=== PATIENT | female | born 1995 | race Caucasian/White ===

== ENCOUNTER 2019-08-02 15:30 | Inpatient (IN) | payer BC, OTHER ==
[2019-08-02] MEDS ORDERED: hydrALAZINE 20 MG/ML VIAL SLOW IVP PRN (15:36)
[2019-08-02 15:54] LABS: Amnisure Test RUPTURE DETECTED (No Rupture)
[2019-08-02 15:55] LABS: Amnisure Internal Control QC ACCEPTABLE (ACCEPTABLE)
[2019-08-02 15:58] VITALS: BMI 37.5
[2019-08-02] MEDS: Lactated Ringer's 1,000 ML IV SCH (16:50)
[2019-08-02] MEDS ORDERED: Lidocaine 1% (PF) 30 ML VIAL SC PRN (17:00)
[2019-08-02] MEDS ORDERED: Ondansetron PF 4 MG/2 ML Vial IVP PRN (17:00)
[2019-08-02] MEDS ORDERED: Acetaminophen 500 MG TAB PO PRN (17:00)
[2019-08-02] MEDS ORDERED: Ibuprofen 800 MG TAB PO PRN (17:00)
[2019-08-02] MEDS ORDERED: Butorphanol Tartrate 1 MG/ML VIAL SLOW IVP PRN (17:00)
[2019-08-02] MEDS ORDERED: Carboprost 250 MCG/ML AMP IM PRN (17:00)
[2019-08-02] MEDS ORDERED: Penicillin G Potassium 5 MILL.UNITS in Sodium Chloride 0.9% 100 ML IVPB SCH (17:00)
[2019-08-02] MEDS ORDERED: Methylergonovine 0.2 MG/ML VIAL IM PRN (17:00)
[2019-08-02] MEDS ORDERED: Misoprostol 200 MCG TAB PR PRN (17:00)
[2019-08-02] MEDS ORDERED: Promethazine HCl 25 MG/ML VIAL IM PRN (17:00)
[2019-08-02] MEDS ORDERED: NS / Oxytocin 40 units/1000ml 1,000 ML IV PRN (17:00)
[2019-08-02] MEDS: Penicillin G 2.5 MILL.units 2.5 MILL.UNITS in Premix Bag 1 BAG IVPB SCH ×2 (17:00→22:00)
[2019-08-02 17:06] LABS: #Basophils 0.1 thou/uL (0.0-0.2); #Eosinphils 0.1 thou/uL (0.0-0.7); #Lymphocytes 1.9 thou/uL (1.20-3.40); #Monocytes 0.9 thou/uL (0.11-0.59); #Neutrophils 11.6 thou/uL (1.40-6.50); %Basophils 0.4 % (0.0-1.0); %Eosinophils 0.5 % (0.0-10.0); %Lymphocytes 13.2 % (21.0-51.0); %Neutrophils 79.9 % (42.0-75.0); Hemoglobin 14.6 g/dL (12.0-16.0); Mean Corpuscular HGB CONC 33.7 g/dL (32.0-36.0); Mean Corpuscular Volume 85.8 fL (78.0-98.0); Mean Platelet Volume 11.5 fL (7.4-10.4); Platelet Count 136 thou/uL (130-400); RBC Distribution Width 13.1 % (11.5-14.5); Red Blood Cell (RBC) Count 5.04 mill/uL (4.20-5.40); White Blood Cell (WBC) Count 14.6 thou/uL (4.8-10.8)
[2019-08-02 17:46] LABS: ALT (SGPT) Less than 7 U/L (8-55); AST (SGOT) 18 U/L (5-34); Albumin 3.5 g/dL (3.5-5.0); Alkaline Phosphatase 148 U/L (40-110); Anion Gap 16 mmol/L (10-20); BUN (Urea Nitrogen) 6 mg/dL (7.0-18.7); Bilirubin, Total 0.3 mg/dL (0.2-1.2); Calc. Creatinine Clearance 271 mL/min (70-130); Calcium 9.2 mg/dL (7.8-10.44); Carbon Dioxide 14 mmol/L (22-29); Chloride 107 mmol/L (98-107); Estimated GFR-MDRD Greater than 90; Globulin 3.5 g/dL (2.4-3.5); Glucose 70 mg/dL (70-105); Potassium 4.1 mmol/L (3.5-5.1); Sodium 133 mmol/L (136-145)
[2019-08-02 17:53] LABS: HBSAg Index 0.16 S/CO (0-0.99); Hep B Surf Ag Non-Reactive S/CO (NonReactive); Syphilis Antibody Nonreactive (Nonreactive); Syphilis Antibody Index 0.03 S/CO (<1.00 Non-Reactive)
[2019-08-02 18:03] LABS: Bacteria/HPF None Seen HPF (None Seen); Bilirubin Negative (Negative); Blood, Urine Negative (Negative); Clarity Clear (Clear); Glucose, Urine (Dipstick) Normal (Negative); Leukocyte Negative Leu/uL (Negative); Nitrite Negative (Negative); Protein, Urine (Dipstick) Negative (Neg-Trace); RBC/HPF 0-3 HPF (0-3); Squamous Epithelial 0-3 HPF (0-3); Urobilinogen Normal mg/dL (Less than 2); WBC/HPF 0-3 HPF (0-3)
[2019-08-02] MEDS: Misoprostol 100 MCG TAB VAG SCH ×2 (18:10→22:05)
[2019-08-02 18:19] LABS: Creatinine, Urine 55.64 mg/dL (47-110); Protein, Urine Random Quant Less than 10 mg/dL (1-14)
--- NOTE | 2019-08-02 18:40 | PDOC.FPROB ---
FMR OB H&P: HPI - History of Present Illness Chief Complaint: LOF Indentification: 24 yo @ 35.6 weeks History of Present Illness: 24 yo F comes in w/ complaint of LOF. States woke up at 5am and bed was soaked. Reports continued to have leaking throughout the day so came in. Denies any ctx. vaginal bleeding. Denies any vaginal discharge, itching or irritation. Denies any fever or chills. Denies any urinary sx's. Primary Care Physician: Guy FMR OB H&P: Current - Care : 1 Para: 0 Gestational age: 35.6 weeks - OB Labs Blood type: unknown RH: unknown Antibody Screen: unknown HIV: unknown RPR: unknown HepBsAg: unknown Quad screen: unknown Gonorrhea: unknown Chlamydia: unknown GBS: unknown Additional labs: Do not have access to records at this time. FMR OB H&P: History - Past Medical History PMH: Scoliosis - OB History OB History: No complications known this - BICYCLE FITTER History BICYCLE FITTER History: Denies any hx of abnormal pap smears or hx of STD's - Surgical History Sx History: States had Rods placed in spine for scoliosis back when she was in the 7th grade - Social History Social History: Denies any smoking, drinking or illicit drug use - Family History Family History: Noncontributory FMR OB H&P: Medications - Current Home Medications: Medication Instructions Recorded Confirmed Type Mv-Mn/Iron/FA/Herbal/Digestive 1 tab PO DAILY 08/02/19 08/02/19 History [ One Tablet] Allergies/Adverse Reactions: Allergies Allergy/AdvReac Type Severity Reaction Status Date / Time No Known Allergies Allergy Verified 08/02/19 15:50 FMR OB H&P: ROS - Review of Systems General: denies: fever/chills, weight/appetite/sleep changes Eyes: denies: eye pain, vision changes, double vision ENT: denies: nasal congestion Respiratory: denies: cough, congestion, shortness of breath Gastrointestinal: denies: abdominal pain, indigestion, bloating, cramping, nausea, vomiting, diarrhea, constipation Genitourinary (Female): reports: other (Reports LOF). denies: incontinence, dysuria, hematuria, polyuria, hesitancy, vaginal discharge, vaginal pain, vaginal bleeding, vaginal mass/sore, contractions, vaginal pressure Musculoskeletal: denies: pain, redness, swelling Neurologic: denies: numbness, weakness Integumentary: denies: itching, rash, lesions Hematologic/Lymphatic: denies: prolonged or excessive bleeding Psychological: denies: depression, anxiety FMR OB H&P: Vital Signs - Maternal Vital signs: Vital Signs - First Documented Temp Pulse Resp BP Pulse Ox 98.1 F 95 18 142/92 H 98 08/02/19 15:32 08/02/19 15:32 08/02/19 15:32 08/02/19 15:32 08/02/19 15:32 - Heart Tones Variability: moderate Acceleration: present Deceleration: absent Category: category 1 [place] contractions every: No contractions noted FMR OB H&P: Physical Exam - Physical Exam General: NAD, awake, alert and oriented HEENT: normocephalic and atraumatic, MMM, grossly normal vision, grossly normal hearing Neck: supple, FROM, trachea midline Heart: RRR, normal S1/S2, no murmurs/rubs/gallops, pulses present General: CTAB, no respiratory distress, good air movement, no rales/rhonchi, no wheezing, no retractions Abdomen: soft, gravid, non-tender, bowel sound present, no masses, no hernias Musculoskeletal: normal gait and station, pulses present, FROM in all four extremities, no misalignment/asymmetry, no atrophy Neurological: sensation to pain,touch and proprioception grossly normal Skin: no rash, good tugor, capillary refill <2 seconds Psychiatric: intact recent and remote memory - Pelvic Exam Cervix: no masses, no lesions Deviation from normal: Some blood noted in posterior cul de sac. SVE: 1/Th/High Membranes: Some slight pooling noted, Fluid noted from cervical os, Fluid noted with Presentation: Confirmed with sono, vertex FMR OB H&P: Results - Labs Lab results: Laboratory Results - last 24 hr 08/02/19 08/02/19 08/02/19 15:42 16:51 16:51 WBC 14.6 H RBC 5.04 Hgb 14.6 Hct 43.3 MCV 85.8 MCH 29.0 MCHC 33.7 RDW 13.1 Plt Count 136 MPV 11.5 H Neutrophils % 79.9 H Lymphocytes % 13.2 L Monocytes % 6.0 Eosinophils % 0.5 Basophils % 0.4 Neutrophils # 11.6 H Lymphocytes # 1.9 Monocytes # 0.9 H Eosinophils # 0.1 Basophils # 0.1 Sodium 133 L Potassium 4.1 Chloride 107 Carbon Dioxide 14 L Anion Gap 16 BUN 6 L Creatinine 0.51 L Estimated GFR (MDRD) Greater than 90 Glucose 70 Calcium 9.2 Total Bilirubin 0.3 AST 18 ALT Less than 7 L Alkaline Phosphatase 148 H Serum Total Protein 7.0 Albumin 3.5 Globulin 3.5 Albumin/Globulin Ratio 1.0 L Urine Color Urine Clarity Urine pH Ur Specific [place] Urine Protein Urine Glucose (UA) Urine Ketones Urine Blood Urine Nitrite Urine Bilirubin Urine Urobilinogen Ur Leukocyte Esterase Urine RBC Urine WBC Ur Squamous Epith Cells Urine Bacteria Hyaline Casts U Random Total Protein Urine Creatinine Amnio Swab Test RUPTURE DETECTED H Syphilis IgG/IgM Ab Hep Bs Antigen Blood Type Antibody Screen 08/02/19 08/02/19 08/02/19 16:51 16:51 16:51 WBC RBC Hgb Hct MCV MCH MCHC RDW Plt Count MPV Neutrophils % Lymphocytes % Monocytes % Eosinophils % Basophils % Neutrophils # Lymphocytes # Monocytes # Eosinophils # Basophils # Sodium Potassium Chloride Carbon Dioxide Anion Gap BUN Creatinine Estimated GFR (MDRD) Glucose Calcium Total Bilirubin AST ALT Alkaline Phosphatase Serum Total Protein Albumin Globulin Albumin/Globulin Ratio Urine Color Urine Clarity Urine pH Ur Specific [place] Urine Protein Urine Glucose (UA) Urine Ketones Urine Blood Urine Nitrite Urine Bilirubin Urine Urobilinogen Ur Leukocyte Esterase Urine RBC Urine WBC Ur Squamous Epith Cells Urine Bacteria Hyaline Casts U Random Total Protein Urine Creatinine Amnio Swab Test Syphilis IgG/IgM Ab Nonreactive Hep Bs Antigen Non-Reactive Blood Type A POSITIVE Antibody Screen NEGATIVE 08/02/19 08/02/19 17:39 17:39 WBC RBC Hgb Hct MCV MCH MCHC RDW Plt Count MPV Neutrophils % Lymphocytes % Monocytes % Eosinophils % Basophils % Neutrophils # Lymphocytes # Monocytes # Eosinophils # Basophils # Sodium Potassium Chloride Carbon Dioxide Anion Gap BUN Creatinine Estimated GFR (MDRD) Glucose Calcium Total Bilirubin AST ALT Alkaline Phosphatase Serum Total Protein Albumin Globulin Albumin/Globulin Ratio Urine Color Light-Yellow Urine Clarity Clear Urine pH 6.0 Ur Specific [place] 1.013 Urine Protein Negative Urine Glucose (UA) Normal Urine Ketones Trace A Urine Blood Negative Urine Nitrite Negative Urine Bilirubin Negative Urine Urobilinogen Normal Ur Leukocyte Esterase Negative Urine RBC 0-3 Urine WBC 0-3 Ur Squamous Epith Cells 0-3 Urine Bacteria None Seen Hyaline Casts 0-3 U Random Total Protein Less than 10 Urine Creatinine 55.64 Amnio Swab Test Syphilis IgG/IgM Ab Hep Bs Antigen Blood Type Antibody Screen FMR OB H&P: A/P - Problem List (1) Current Visit: Yes Status: Acute (2) premature rupture of membranes (PPROM) delivered, current hospitalization Current Visit: Yes Status: Acute Code(s): O42.919 - PRETRM LEEANNE ROM, UNSP TIME BETW RUPT AND ONST LABR, UNSP TRI (3) Elevated blood pressure affecting in third trimester, antepartum Current Visit: Yes Status: Acute Code(s): O16.3 - UNSPECIFIED MATERNAL HYPERTENSION, THIRD TRIMESTER Disposition: 24 yo @ 35.6 wks present w/ PPROM PPROM -Amnisure (+), Fluid noted from cervical os and noted again with valsalva manuever. -Bedside sono showed Vertex position. -SVE /high -Will augment labor with vaginal cytotec at this time and start pitocin when more favorable. -GBS, G/CT cx obtained. -VP3 obtained. -UA obtained. gestational HTN -Pt has had multiple elevated BP in 140's-150s. No severe range pressures noted -CBC, CMP, urine pr/cr ordered -Hydralazine prn for severe range pressures. Discussion: Date/Time: 08/02/191834 This H&P was discussed with [] and [] who agree with the above documentation and plan. Addendum - Attending - Attending Attestation Date/Time: 08/02/192029 I personally evaluated the patient and discussed the management with Dr. Yu. 24 yo at 35 6/7 weeks with ROM and unfavorable cervix. Will admit for Cytotec induction and start Diana for GBS ppx. I agree with the History, Examination, Assessment and Plan documented above.
[2019-08-03] MEDS: Penicillin G 2.5 MILL.units 2.5 MILL.UNITS in Premix Bag 1 BAG IVPB SCH ×5 (02:03→21:15)
[2019-08-03] MEDS ORDERED: Lidocaine 1% (PF) 30 ML VIAL SC PRN (02:49)
--- NOTE | 2019-08-03 04:41 | PDOC.LDPN ---
Labor & Delivery Progress Note - Subjective Subjective: comfortable - Objective Vital signs reviewed and normal: yes General: NAD, resting Uterine fundus: non tender Dilation: 2 Effacement: 50% Station: -1 FHT: category 1, variability present [place] contractions every: 2 minutes - Assessment (1) Current Visit: Yes Status: Acute Qualifiers: Weeks of gestation: 35 weeks Qualified Code(s): Z3A.35 - 35 weeks gestation of (2) premature rupture of membranes (PPROM) delivered, current hospitalization Code(s): O42.919 - PRETRM LEEANNE ROM, UNSP TIME BETW RUPT AND ONST LABR, UNSP TRI Current Visit: Yes Status: Acute (3) Elevated blood pressure affecting in third trimester, antepartum Code(s): O16.3 - UNSPECIFIED MATERNAL HYPERTENSION, THIRD TRIMESTER Current Visit: Yes Status: Acute Plan: continue plan of care, labor augmentation -: 24 yo @ 35.6 wks present w/ PPROM PPROM -Amnisure (+), Fluid noted from cervical os and noted again with valsalva manuever. -Bedside sono showed Vertex position. -SVE 1/Th/high upon presentation. Given 2 doses of vaginal Cytotec. -Most recent SVE 2/50/-1 with consistent ctx every 2 minutes. Cat 1 strip. -Will continue to augment labor with cytotec if pt remains unchanged and ctx space out. Will start pitocin when more favorable -GBS, G/CT cx obtained. -VP3 negative -UA negative gestational HTN -Pt has had multiple elevated BP in 140's-150s. No severe range pressures noted -No abnormalities noted on lab -Hydralazine prn for severe range pressures.
[2019-08-03] MEDS: Misoprostol 100 MCG TAB PO SCH ×2 (05:35→19:46)
[2019-08-03] MEDS: Lactated Ringer's 1,000 ML IV SCH ×2 (05:44→19:47)
[2019-08-03] MEDS ORDERED: NS w/ Oxytocin 10 units 500 ML ONE (08:23)
--- NOTE | 2019-08-03 08:28 | PDOC.LDPN ---
Labor & Delivery Progress Note - Objective Vital signs reviewed and normal: yes General: NAD Uterine fundus: non tender SVE: By Dr Megan Woodson, while I was in room Dilation: 3 Effacement: 50% Station: -2 FHT: category 1 [place] contractions every: irregaular, occasionally every 2-4 minutes - Assessment (1) labor in third trimester Code(s): O60.03 - LABOR WITHOUT DELIVERY, THIRD TRIMESTER Current Visit: Yes Status: Acute (2) Current Visit: Yes Status: Acute Qualifiers: Weeks of gestation: 36 weeks Qualified Code(s): Z3A.36 - 36 weeks gestation of Plan: continue plan of care, labor augmentation (Taylor score is now 6. OK for pitocin. Pitocin over cytotec discuissed with the patient by me. KULWANT Russo in room for exam. Patient on GBS ABX coverage due to EGA. HX SROM yesterday at approx 0500...now Prolonged Prelabor ROM)
[2019-08-03] MEDS ORDERED: NS w/ Oxytocin 10 units 500 ML IV SCH (08:30)
[2019-08-03] MEDS ORDERED: Fentanyl 4 mcg/Bup 0.1% Cadd 100 ML ONE (15:00)
[2019-08-03] MEDS ORDERED: EPHEDRINE 25 MG/5 ML SYRINGE SLOW IVP PRN (15:24)
[2019-08-03] MEDS ORDERED: Ondansetron PF 4 MG/2 ML Vial IVP PRN (15:24)
[2019-08-03] MEDS ORDERED: Lactated Ringer's 500 ML IV PRN (15:24)
[2019-08-03] MEDS ORDERED: Acetaminophen 325 MG TAB PO PRN ×2 (15:24→22:51)
[2019-08-03] MEDS ORDERED: Promethazine HCl 25 MG/ML VIAL IM PRN (15:24)
[2019-08-03] MEDS ORDERED: Naloxone HCl 0.4 mg/ml Vial IVP PRN ×2 (15:24)
[2019-08-03] MEDS ORDERED: diphenhydrAMINE 50 MG/ML VIAL IVP PRN (15:24)
[2019-08-03] MEDS ORDERED: Fentanyl 4 mcg/Bupivacaine 0.1% Cassette 100 ML EPIDURAL SCH (15:30)
[2019-08-03] MEDS ORDERED: Communication Order-Pharmacy FS SCH (15:30)
--- NOTE | 2019-08-03 19:34 | PDOC.LDPN ---
"Labor & Delivery Progress Note - Subjective Subjective: comfortable - Objective Vital signs reviewed and normal: yes General: NAD, resting Uterine fundus: non tender SVE: 1900 Dilation: 6 Effacement: 90% Station: 1+ FHT: category 1, variability present [place] contractions every: 2-3 min - Assessment (1) premature rupture of membranes Code(s): O42.919 - PRETRM LEEANNE ROM, UNSP TIME BETW RUPT AND ONST LABR, UNSP TRI Current Visit: Yes Status: Acute (2) Elevated blood pressure affecting in third trimester, antepartum Code(s): O16.3 - UNSPECIFIED MATERNAL HYPERTENSION, THIRD TRIMESTER Current Visit: Yes Status: Acute (3) labor in third trimester Code(s): O60.03 - LABOR WITHOUT DELIVERY, THIRD TRIMESTER Current Visit: Yes Status: Acute Plan: continue plan of care, pitocin for augmentation -: 24 yo @ 36.0wks present w/ PPROM PPROM -Amnisure (+), Fluid noted from cervical os and noted again with valsalva manuever. -Bedside sono showed Vertex position. -GBS unknown - s/p treatment due to gestation age. -VP3& UA negative. GC/CT pending. SVE: 1643: 4/90/-1 | started pitocin 1900: 6/90/+1 gestational HTN -Pt has had multiple elevated BP in 140's-150s on initial presentation. No severe range pressures noted. Latest pressures have been low/normal. -No abnormalities noted on lab -Hydralazine prn for severe range pressures."
[2019-08-03 19:37] LABS: Chlamydia by PCR Not Detected (NotDetected); GC by PCR Not Detected (NotDetected)
--- NOTE | 2019-08-03 20:00 | PDOC.BPN ---
- Brief Progress Note After last cervical check, baby experienced 3 recurrent late decelerations. Nurse initiated position change and FHT tracing improved. Variability: Moderate Accel appreciated. Will monitor strip closely. Gianluca LONG PGY1 / Dr. Gabriel / Dr. Horn
--- NOTE | 2019-08-03 20:15 | PDOC.EVN ---
Event Note - Event Note Event Note: See L&D QS annotation. I was at bedside with Buse. Decel noted but variability intact. Accels noted. Rate now 140s. CX now 8cm. Plan reviewed with KULWANT Osman.
--- NOTE | 2019-08-03 22:00 | PDOC.BPN ---
- Brief Progress Note Currently category 2 strip intermittent late deceleration, <50% of contractions Moderate variability accels present complete, +3 station Will prepare for delivery
[2019-08-03] MEDS: NS / Oxytocin 40 units/1000ml 1,000 ML IV PRN ×2 (22:39→23:55)
--- NOTE | 2019-08-03 22:44 | PDOC.OPDEL ---
OB Operative/Delivery Note Delivery Dr/Surgeon: Jonelle Assist: Kory Pre-Delivery Diagnosis: active labor, other (36 weeks PPROM) Procedure/Post Delivery Dx: spontaneous vaginal delivery (at 2234, vigorous male ) Weeks gestation: 36 Anesthesia: epidural - Findings A Sex: male - 1 min: 8 (verbal, pending formal score) - 5 min: 9 - Additional Findings/Plan Placenta delivered: spontaneous (celena, at 2239. 3VC.) Repaired Obstetrical Laceration: none Estimated blood loss: 200 at max Compilations/Other Findings: no NC, no lacs, counts correct. NICU RNs present for baby due to EGA. Baby with spont cry and vigorous. Post delivery plan: recovery in LICU
[2019-08-04] MEDS ORDERED: Preparation H Ointment 28 GM TUBE PR PRN (01:13)
[2019-08-04] MEDS ORDERED: NS / Oxytocin 40 units/1000ml 1,000 ML IV SCH (01:13)
[2019-08-04] MEDS ORDERED: Benzocaine-Menthol 82.5 ML CAN TOP PRN (01:13)
[2019-08-04] MEDS ORDERED: Milk Of Magnesia 30 ML UDCUP PO PRN (01:13)
[2019-08-04] MEDS ORDERED: Bisacodyl 10 MG SUPP PR PRN (01:13)
[2019-08-04] MEDS ORDERED: Ondansetron PF 4 MG/2 ML Vial IVP PRN (01:13)
[2019-08-04] MEDS ORDERED: Lanolin Ointment 7 GM TUBE TOP PRN (01:13)
[2019-08-04] MEDS ORDERED: hydrALAZINE 20 MG/ML VIAL SLOW IVP PRN (01:13)
[2019-08-04] MEDS: Lactated Ringer's 1,000 ML IV SCH (01:41)
[2019-08-04] MEDS: Misoprostol 100 MCG TAB VAG SCH ×2 (01:42→01:43)
[2019-08-04] MEDS: Misoprostol 100 MCG TAB PO SCH ×2 (01:42)
[2019-08-04] MEDS: Ibuprofen 800 MG TAB PO SCH ×3 (04:59→21:41)
[2019-08-04 06:46] LABS: Hemoglobin 12.6 g/dL (12.0-16.0)
[2019-08-04] MEDS: Penicillin G 2.5 MILL.units 2.5 MILL.UNITS in Premix Bag 1 BAG IVPB SCH (07:29)
[2019-08-04] MEDS: Ferrous Sulfate 325 MG TAB PO SCH ×2 (07:29→15:02)
--- NOTE | 2019-08-04 07:57 | PDOC.PP ---
Post Progress Note Post Day #: 1 Subjective: doing well, no concerns, baby isn't really latching well, waiting for LC PO intake tolerated: yes Flatus: yes Ambulation: yes Vital Signs (12 hours) Temp Pulse Resp BP Pulse Ox 08/04/19 07:43 98.3 F 85 20 103/56 L 96 08/04/19 05:00 98.7 F 100 17 110/62 98 08/04/19 02:20 98.7 F 108 H 20 129/73 96 08/04/19 01:13 98.5 F 109 H 20 119/71 96 Weight Weight 219 lb - Physical Examination General: NAD Respiratory: non-labored breathing Abdominal: no distention Fundus firm & at: below umb Psychiatric: A&Ox3, normal affect Result Diagrams: 08/04/19 06:40 08/02/19 16:51 Additional Labs: Post Labs Blood Type A POSITIVE 08/02/19 18:39 Hep Bs Antigen Non-Reactive S/CO (NonReactive) 08/02/19 16:51 (1) premature rupture of membranes Code(s): O42.919 - PRETRM LEEANNE ROM, UNSP TIME BETW RUPT AND ONST LABR, UNSP TRI Status: Acute (2) Vaginal delivery Code(s): O80 - ENCOUNTER FOR FULL-TERM UNCOMPLICATED DELIVERY Status: Acute - Assessment/Plan PPD1 sp following PPROM. Possible DC tomorrow.
[2019-08-04] MEDS ORDERED: Adacel (T-DAP) 0.5 ML SYRINGE IM ONE (09:00)
[2019-08-04] MEDS: Docusate Calcium (SURFAK) 240 MG CAP PO SCH ×2 (09:33→21:42)
[2019-08-05] MEDS: Ibuprofen 800 MG TAB PO SCH ×2 (05:44→13:52)
[2019-08-05 08:02] VITALS: BP 103/54; TEMP 98.2
--- NOTE | 2019-08-05 08:06 | PDOC.PP ---
Post Progress Note Post Day #: 2 Subjective: doing well, would like to DC home today if possible PO intake tolerated: yes Flatus: yes Ambulation: yes Vital Signs (12 hours) Temp Pulse Resp BP Pulse Ox 08/05/19 08:02 98.2 F 89 20 103/54 L 97 Weight Weight 219 lb - Physical Examination General: NAD Respiratory: non-labored breathing Abdominal: no distention Fundus firm & at: below umb Skin: no rash Neurological: no gross focal deficits Psychiatric: A&Ox3, normal affect Result Diagrams: 08/04/19 06:40 08/02/19 16:51 Additional Labs: Post Labs Blood Type A POSITIVE 08/02/19 18:39 Hep Bs Antigen Non-Reactive S/CO (NonReactive) 08/02/19 16:51 (1) premature rupture of membranes Code(s): O42.919 - PRETRM LEEANNE ROM, UNSP TIME BETW RUPT AND ONST LABR, UNSP TRI Status: Acute (2) Vaginal delivery Code(s): O80 - ENCOUNTER FOR FULL-TERM UNCOMPLICATED DELIVERY Status: Acute - Assessment/Plan PPD 2 doing well, plan for DC today.
[2019-08-05] MEDS: Ferrous Sulfate 325 MG TAB PO SCH (09:16)
[2019-08-05] MEDS: Docusate Calcium (SURFAK) 240 MG CAP PO SCH (09:17)
== END 2019-08-05 14:20 | disposition home or self-care (01) | DRG 807 ==
LOC: L&D/OP 15:30 → L&D 17:09 → 3SW 08-04 02:21
PROVIDERS: ADMIT Obstetrics & Gynecology; ATTEND Obstetrics & Gynecology
PROC: 10E0XZZ Delivery of Products of Conception, External Approach (ICD-10-PCS; principal; 2019-08-02)
DX: O13.4 Gestational [pregnancy-induced] hypertension without significant proteinuria, complicating childbirth (principal); Z37.0 Single live birth; Z3A.35 35 weeks gestation of pregnancy; O42.013 Preterm premature rupture of membranes, onset of labor within 24 hours of rupture, third trimester
CPT/HCPCS: 36415; 51702; 80053; 81003; 82570; 84112; 84156; 85014; 85018; 85025; 86780; 86850; 86900; 86901; 87081; 87340; 87480; 87491; 87510; 87591; 87660; 99285; J0595; J2540; J2590; J3490